=== PATIENT | female | born 1935 | race African-American/Black ===

== ENCOUNTER 2017-07-18 10:34 | Inpatient (IN) ==
[2017-07-18] MEDS ORDERED: SODIUM CHLORIDE 0.9% 500 ML IV STA (11:42)
[2017-07-18] MEDS ORDERED: FUROSEMIDE 40 MG/4 ML VIAL IV STA (11:44)
--- NOTE | 2017-07-18 11:45 | Emergency Department Note ---
Cristain Mirza Brittany, am scribing for, and in the presence of, Laz Claudio MD 11:39. Shanon Mirza Charles R, MD, personally performed the services described in this documentation, ascribed by Ligia Foster in my presence, and it is both accurate and complete . Arrival - Arrival Chief Complaint: Altered Mental Status Stated Complaint: Sugar high & slurred speech, diarrhea. 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 . Mode of Arrival: Wheelchair Limitations: No Limitations Source: Patient, RN Notes Reviewed Time Seen by Provider: 07/18/17 11:20 - History of Present Illness HPI Narrative: Patient is a 81 y/o black female with a history of HTN, Peripheral Neuropathy, and IDDM presenting to the ED for further evaluation of AMS that began yesterday. Family reports that for about a week now patient has been having elevated blood sugars, vertigo, edema of lower extremities, decrease in appetite , and diarrhea. Patient suddenly began to have some confusion, that is not normal for her. Family states that patient usually is on spot and one to recall things very well. In room patient has difficulty concentrating and is pleasantly confused. Family did take patient to her PCP office yesterday which she was diagnosed with strep throat. She was not placed on abx and did not receive a steroid injection. Patient denies having had any headache or blurred vision. Patient does not take any diuretics. Patient has no further complaints. Onset (ago): week(s) (1) Consistency: intermittent Allergies/Adverse Reactions: Allergies Allergy/AdvReac Type Severity Reaction Status Date / Time Penicillins Allergy HIVES Verified 07/18/17 11:04 Sulfa (Sulfonamide Allergy HIVES Verified 07/18/17 11:04 Antibiotics) Home Medications: Home Medications Medication Instructions Recorded Confirmed Type Insulin Aspart Prot/Asp 70/30 25 unit SUBCUT AC SUPPER 05/09/15 07/18/17 History [NovoLOG Mix 70/30] Insulin Aspart Prot/Asp 70/30 35 unit SUBCUT AC BREAKFAST 05/09/15 07/18/17 History [NovoLOG Mix 70/30] Lansoprazole [Prevacid] 15 mg PO DAILY 05/09/15 07/18/17 History Potassium Chloride 20 meq PO DAILY 05/09/15 07/18/17 History Losartan/Hydrochlorothiazide 1 tablet PO DAILY 07/18/17 07/18/17 History [Losartan-Hctz 50-12.5 mg Tab] Metformin HCl [Metformin HCl] 500 mg PO DAILY 07/18/17 07/18/17 History Metoprolol Succinate 50 mg PO DAILY 07/18/17 07/18/17 History Nebivolol [Bystolic] 5 mg PO DAILY 07/18/17 07/18/17 History Review of System - Review of System 12 point system: reviewed and no additional remarkable complaints except as stated - Review of System Constitutional: Present: other (elevated blood glucose). Absent: chills, fever Eyes: Absent: vision change Head/Ears/Nose/Throat: Absent: nasal drainage, sore throat Respiratory: Absent: respiratory distress Cardiovascular: Present: edema. Absent: chest pain Gastrointestinal: Present: diarrhea, other (decrease in appetite). Absent: abdominal pain, nausea, vomiting Genitourinary female: Absent: dysuria, frequency, urgency Musculoskeletal: Absent: arm pain, back pain, leg pain, neck pain Skin: Absent: rash Neurological: Present: confusion, vertigo. Absent: headache Psychiatric: Absent: anxiety, depression Hematological/Lymphatic: Absent: easy bleeding, easy bruising Medical,Surgical,& Family Hx - Medical History Cardio: History of: Hypertension Neurology: History of: Peripheral Neuropathy (Diabetic Neuropathy) Endocrine: History of: Diabetes Mellitus (IDDM) - Surgical History Surgical History: noncontributory - Family History Family History: noncontributory - Social History Smoking Status: Never smoker Frequency of Alcohol Use: None Type of Drug Use: None Exam Vital Signs: Vital Signs Temperature 98.5 F 07/18/17 11:00 Pulse Rate 97 H 07/18/17 14:00 Respiratory Rate 18 07/18/17 14:00 Blood Pressure 126/103 07/18/17 14:00 O2 Sat by Pulse Oximetry 98 07/18/17 14:00 - General General appearance: alert, in no apparent distress - Head Head exam: Present: atraumatic, normocephalic, normal inspection - Eye Eye exam: Present: normal appearance, PERRL, EOMI - ENT ENT exam: Present: normal exam, normal oropharynx - Neck Neck exam: Present: normal inspection, full ROM, trachea midline - Chest Chest inspection: Present: normal inspection, symmetric chest wall rise - Respiratory Respiratory exam: Present: rales (bilaterally). Absent: normal lung sounds bilaterally - Cardiovascular Cardiovascular exam: Present: normal rhythm, tachycardia, normal heart sounds. Absent: regular rate - Abdominal Exam Abdominal exam: Present: soft, hyperactive bowel sounds. Absent: tenderness, normal bowel sounds - Extremities Exam Extremities exam: Present: pedal edema (+2 edema BLE) - Back Exam Back exam: Present: normal inspection - Neurological Exam Neurological exam: Present: alert, CN II-XII intact. Absent: oriented X3 (Pt is pleasantly confused, has a hard time concentrating her thoughts), motor sensory deficit - Psychiatric Psychiatric exam: Present: normal affect, normal mood - Skin Skin exam: Present: warm, dry Course - Consultations Consultation #1: Hospitalist will admit patient Time: 13:45 Results - Labs CBC & BMP: 07/18/17 11:56 07/18/17 11:56 Lab Results: I have reviewed the patients labs Labs: Laboratory Tests 07/18/17 07/18/17 07/18/17 11:42 11:56 11:56 WBC 10.2 RBC 4.41 Hgb 11.5 L Hct 34.6 L MCV 78.5 L MCH 26 L Plt Count 234 Lymph % (Auto) 19.1 L Lawrence % (Auto) 15.2 H [place] # (Auto) 1.6 H INR 1.1 PT Patient/Control Mix 12.0 Ammonia 20 Laboratory Tests 07/18/17 11:56 Urine Color Yellow Urine Appearance Cloudy Urine pH 5.0 Ur Specific [place] 1.008 Urine Protein 100 Urine Glucose (UA) 50 Urine Ketones Negative Urine Blood Small Urine Nitrate Negative Urine Bilirubin Negative Urine Urobilinogen < 2.0 H Urine Leukocytes Negative Urine RBC 3 Urine WBC 2 Ur Squamous Epith Cells Occasional Urine Bacteria Few Hyaline Casts 1 Urine Mucus Occasional Laboratory Tests 07/18/17 11:56 Sodium 138 Potassium 3.6 Chloride 102 Carbon Dioxide 27 BUN 41 H Creatinine 2.40 H Glucose 302 H ALT 75 H Troponin I < 0.015 Albumin 3.0 L Globulin 4.6 H Albumin/Globulin Ratio 0.6 L Laboratory Tests 07/18/17 11:56 B-Natriuretic Peptide 217 H Laboratory Tests 07/18/17 12:32 Triglycerides 123 Cholesterol 79 LDL Cholesterol 49.0 VLDL Cholesterol 24.6 HDL Cholesterol 20 L Heart Disease Risk Ratio 3.95 Laboratory Tests 07/18/17 12:32 Hemoglobin A1c 9.1 H Laboratory Tests 07/18/17 15:35 POC Glucose 292 H - Diagnostic Findings Procedure: Chest x-ray: report reviewed by me (Minimal interstitial edema.), CT : report reviewed by me (CT Head: No abnormality is seen.) Critical Care Time Critical Care Time: Yes Total Critical Care Time: 60 Disposition Clinical Impression: Altered mental status, Hypertensive urgency, Renal insufficiency Case discussed with: patient, patient's family Disposition: Still a Patient Condition: Stable Time of Disposition: 13:46
[2017-07-18] MEDS ORDERED: FUROSEMIDE 40 MG/4 ML VIAL ONE (11:47)
[2017-07-18 12:09] LABS: Basophils % 0.3 % (0.0-0.8); Eosinophils # 0.1 10*3/uL (0.0-0.87); Eosinophils % 1.2 % (0.00-10.9); Hematocrit 34.6 VOL% (35.7-47.0); Hemoglobin 11.5 GM/DL (12.0-16.0); Immature Granulocytes % 0.4 %; Immature Granulocytes Absolute 0.04 #; Lymphocytes % 19.1 % (21.3-54.2); Mean Corpuscular HGB Conc 33.2 GM/DL (32-36); Mean Corpuscular Hemoglobin 26 PG (27-34); Mean Corpuscular Volume 78.5 FL (87-102); Mean Platelet Volume 10.7 FL (9.6-12.0); Monocytes # 1.6 10*3/uL (0.11-0.8); Monocytes % 15.2 % (1.7-12.7); Neutrophils # 6.5 10*3/uL (1.4-7.4); Neutrophils % 63.8 % (38.7-73.9); Platelet Count 234 T/CUMM (130-400); Red Blood Count 4.41 MC/CUMM (3.8-5.5); Red Cell Distribution Width 13.3 % (9.3-17.3); White Blood Count 10.2 T/CUMM (4-12)
[2017-07-18 12:18] LABS: INR 1.1
[2017-07-18 12:22] LABS: Ammonia 20 UMOL/L (11-32)
[2017-07-18 12:26] LABS: Lactic Acid 1.9 MMOL/L (0.4-2.0)
[2017-07-18 12:30] LABS: Alanine Aminotransferase 75 U/L (13-56); Alkaline Phosphatase 106 U/L (45-117); Aspartate Amino Transferase 36 U/L (0-37); Blood Urea Nitrogen 41 MG/DL (7-18); Calcium 9.4 MG/DL (8.5-10.1); Glucose 302 MG/DL (74-106); Osmolality,Calculated 295.7 MOS/KG (273-304); Potassium 3.6 MMOL/L (3.5-5.1); Sodium 138 MMOL/L (136-145); Total Protein 7.6 G/DL (6.4-8.3); Troponin I Only < 0.015 NG/ML (0.00-0.045)
--- NOTE | 2017-07-18 12:30 | Order Completion Report ---
See report scanned to EMR
[2017-07-18 12:34] LABS: Apearance,Urine CLOUDY (Clear); Bacteria,Urine Few /HPF (Few); Bilirubin,Urine Negative (Negative); Blood, Urine Small mg/dL (Negative); Glucose,Urine (UA) 50 mg/dL (Negative); Hyaline Casts,Urine 1 /LPF (0-3); Ketones,Urine Negative (Negative); Mucus,Urine Occasional /LPF (Occasional); Nitrite,Urine Negative (Negative); Protein,Urine 100 MG/DL; RBC,Urine 3 /HPF (0-4); Squamous Epithelial Cell,Urine Occasional /HPF (0-10); Urine Color Yellow (Yellow); Urine Specific Gravity 1.008 (1.001-1.035); Urine Urobilinogen < 2.0 EU/DL (0.2-1.0); WBC,Urine 2 /HPF (0-6)
--- NOTE | 2017-07-18 13:05 | XRay Report ---
History is altered mental status Comparison 12/29/2011 The heart and vessels are mildly enlarged. Superior mediastinal contours unchanged likely related to vasculature There is minimal increasing interstitial prominence without consolidation. Impression: Minimal interstitial edema PROCEDURE INTERPRETED AT [facility] DEPARTMENT OF RADIOLOGY Final Report Signed by: Dr. Christel Healy
[2017-07-18] MEDS ORDERED: LABETALOL 20 MG/4 ML SYRINGE IV ONE (13:15)
[2017-07-18] MEDS ORDERED: LABETALOL 20 MG/4 ML SYRINGE IV STA (13:17)
--- NOTE | 2017-07-18 13:47 | CT Report ---
CT of the head without contrast. Indication: Altered mental status. Comparison: March 31, 2017. The ventricles are normal in size and configuration. There is no mass effect, midline shift, or area of hemorrhage. No ischemic lesions are seen. The calvarium is intact. The included paranasal sinuses and the mastoid air cells are clear. Impression: No abnormality is seen. The CT exam was performed using one or more of the following dose reduction techniques: Automated exposure control, adjustment of the mA and/or kV according to patient size, or use of iterative reconstruction technique. PROCEDURE INTERPRETED AT [facility] DEPARTMENT OF RADIOLOGY Final Report Signed by: Dr. Jane Healy
[2017-07-18] MEDS ORDERED: DEXTROSE 50% 25 GM/50 ML VIAL IV PRN ×2 (14:15)
[2017-07-18] MEDS ORDERED: GLUCAGON 1 MG VIAL IM PRN ×2 (14:15)
[2017-07-18] MEDS ORDERED: hydrALAZINE 25 MG TABLET PO PRN (14:17)
[2017-07-18 14:48] LABS: Risk Ratio 3.95; VLDL CHOLESTEROL 24.6 MG/DL
--- NOTE | 2017-07-18 15:56 | Hospitalist History & Physical ---
Assessment and Plan - Time spent with patient Time spent with patient: Greater than 30 minutes (1) Altered mental status Status: Acute Assessment and plan: Admit to monitored bed Head CT shows no acute intracranial abnormality. MRI of the head/brain MRA neck Consult neurology UDS Current Visit: Yes (2) Atrial fibrillation, new onset Status: Acute Assessment and plan: Echocardiogram Anticoagulate with Lovenox Metoprolol succinate Aspirin 325 Current Visit: Yes (3) Acute kidney injury Status: Acute Assessment and plan: IV fluids Avoid nephrotoxic agents Continue home dose of losartan Current Visit: Yes (4) Diarrhea Status: Acute Assessment and plan: Stool cultures and C. difficile toxins A and B IV fluid for repletion Current Visit: Yes (5) Diabetes mellitus Status: Acute Assessment and plan: Accu-Cheks ACHS. Continue home insulin dose. Add sliding scale insulin per protocol Current Visit: Yes (6) Hypertensive urgency Status: Acute Assessment and plan: Resolved. Continue to monitor BP. Continue home medications for hypertension. Add hydralazine PRN Current Visit: Yes History of Present Illness Chief complaint: hyperglycemia History of present illness: Ms. Daly is a 81 year old female with a past medical history significant for diabetes mellitus and hypertension who presents to the ED today for further evaluation of elevated blood sugar with onset today. The patient presented today for a mammogram which she was found to have elevated blood sugars and was told to report to the emergency room. On admission to the ER, patient was found to be in hypertensive crisis with hypoglycemia and some confusion. Patient's daughters, who are at bedside, assisted in the history and reports that the patient has been intermittently confused with diarrhea for the past several days (3-4 times a day). Patient admits that she did not take her insulin as prescribed last night nor has she taken her antihypertensive medication this morning. She confirms confusion, bilateral lower extremity swelling, and frequent falls. She denies any pain at this time, tenderness or fever and states that her appetite has not decreased any. She does confirm that she is recently changed blood pressure medications within the last month. Lab work is significant for: WBC 10.2, hemoglobin 11.5, hematocrit 34.6, platelets 234, BUN 41, creatinine 2.40, serum glucose 302, ALT 75. Urinalysis is negative for infection. This case has been discussed both with the ER physician and Dr. Robles, admitting physician, and the patient will be admitted to the hospital medicine service for further evaluation and treatment. CODE STATUS was discussed: Patient is a full code. Home medications have been reviewed and reconciled. Home Medications Medication Instructions Recorded Confirmed Type Insulin Aspart Prot/Asp 70/30 25 unit SUBCUT AC SUPPER 05/09/15 07/18/17 History [NovoLOG Mix 70/30] Insulin Aspart Prot/Asp 70/30 35 unit SUBCUT AC BREAKFAST 05/09/15 07/18/17 History [NovoLOG Mix 70/30] Lansoprazole [Prevacid] 15 mg PO DAILY 05/09/15 07/18/17 History Potassium Chloride 20 meq PO DAILY 05/09/15 07/18/17 History Losartan/Hydrochlorothiazide 1 tablet PO DAILY 07/18/17 07/18/17 History [Losartan-Hctz 50-12.5 mg Tab] Metformin HCl [Metformin HCl] 500 mg PO DAILY 07/18/17 07/18/17 History Metoprolol Succinate 50 mg PO DAILY 07/18/17 07/18/17 History Nebivolol [Bystolic] 5 mg PO DAILY 07/18/17 07/18/17 History Allergies Allergy/AdvReac Type Severity Reaction Status Date / Time Penicillins Allergy HIVES Verified 07/18/17 11:04 Sulfa (Sulfonamide Allergy HIVES Verified 07/18/17 11:04 Antibiotics) Medical,Surgical,& Family Hx - Medical History Cardio: History of: Hypertension Neurology: History of: Peripheral Neuropathy (Diabetic Neuropathy) Endocrine: History of: Diabetes Mellitus (IDDM) - Family History Family History: Reports;: Family Diabetes, Family Heart Disease, Family Hypertension - Social History Smoking Status: Never smoker Frequency of Alcohol Use: None Type of Drug Use: None Marital Status: Single Lives With:: Children Functional capacity: independent ambulation 12 point system: reviewed and no additional remarkable complaints except as stated Exam - Constitutional Vitals: Period Temp Pulse Resp BP Sys/Rider Pulse Ox Last 24 Hr 98.5 F-98.5 F 83-111 16-20 126-209/82-129 96-100 Exam: General appearance: obese, no acute distress - Head Head exam: Present: normocephalic, atraumatic - Eye Eye exam: Present: EOMI. Absent: conjunctival injection, nystagmus Pupils: Present: DAVID, normal accommodation - ENT ENT exam: Present: normal exam, normal external ear exam - Neck Neck exam: Present: normal inspection. Absent: lymphadenopathy, tenderness, thyromegaly - Respiratory Respiratory exam: Present: clear to auscultation bilaterally. Absent: rales, rhonchi, wheezes - Cardiovascular Cardiovascular exam: Present: Irregularly irregular. Absent: carotid bruit, gallop, rubs - GI/Abdominal GI/Abdominal exam: Present: normal bowel sounds. Absent: ascites, distended, mass - Extremities Exam Extremities exam: Present: BLE 2-3+ pitting edema - Back Exam Back exam: Absent: CVA tenderness (L), CVA tenderness (R) - Neurological Exam Neurological exam: Present: alert, oriented X3, CN II-XII intact, reflexes normal - Psychiatric Psychiatric exam: Present: normal affect, normal mood - Skin Skin exam: Present: normal color, warm, dry Results - Labs CBC & BMP: 07/18/17 11:56 07/18/17 11:56 Lab Results: I have reviewed the past 24 hour labs - EKG EKG shows: atrial fibrillation - Diagnostic Findings Procedure: Chest x-ray: image reviewed by me, report reviewed by me, CT: image reviewed by me, report reviewed by me Quality Measures - VTE Contraindication to Pharmacological VTE Prophylaxis: Already on Theraputic Agent , No Prophylaxis Needed
[2017-07-18 16:54] LABS: Barbiturates Screen,Urine Negative (Negative); Benzodiazepines Screen,Urine Negative (Negative); Cannabinoid Screen,Urine Negative (Negative); Opiate Screen,Urine Negative (Negative); Phencyclidine Screen,Urine Negative (Negative)
[2017-07-18] MEDS: INSULIN ASPART PROTAMINE/ASPART 70/30 100 UNIT/ML SUBCUT SCH (17:47)
[2017-07-18] MEDS: ASPIRIN 325 MG TABLET PO SCH (17:47)
[2017-07-18] MEDS: SODIUM CHLORIDE 0.45% 1,000 ML IV SCH (17:48)
[2017-07-18] MEDS: ENOXAPARIN 80 MG/0.8 ML SYRINGE SUBCUT SCH (17:48)
[2017-07-18] MEDS: INSULIN LISPRO 100 UNIT/ML SUBCUT SCH ×2 (18:00→21:08)
--- NOTE | 2017-07-18 19:06 | Order Completion Report ---
See report scanned to EMR
[2017-07-18] MEDS: ROSUVASTATIN 20 MG TABLET PO SCH (21:08)
[2017-07-19] MEDS: SODIUM CHLORIDE 0.45% 1,000 ML IV SCH ×3 (06:36→16:47)
[2017-07-19 08:06] LABS: Basophils % 0.2 % (0.0-0.8); Eosinophils # 0.2 10*3/uL (0.0-0.87); Eosinophils % 2.2 % (0.00-10.9); Hematocrit 31.2 VOL% (35.7-47.0); Hemoglobin 10.5 GM/DL (12.0-16.0); Immature Granulocytes % 0.4 %; Immature Granulocytes Absolute 0.04 #; Lymphocytes # 2.7 10*3/uL (1.4-4.0); Lymphocytes % 24.9 % (21.3-54.2); Mean Corpuscular HGB Conc 33.7 GM/DL (32-36); Mean Corpuscular Hemoglobin 26 PG (27-34); Mean Corpuscular Volume 77.4 FL (87-102); Mean Platelet Volume 10.8 FL (9.6-12.0); Monocytes # 1.6 10*3/uL (0.11-0.8); Monocytes % 15.1 % (1.7-12.7); NRBC # 0.02 10*3/uL; Neutrophils # 6.1 10*3/uL (1.4-7.4); Neutrophils % 57.2 % (38.7-73.9); Platelet Count 247 T/CUMM (130-400); Red Blood Count 4.03 MC/CUMM (3.8-5.5); Red Cell Distribution Width 13.6 % (9.3-17.3); White Blood Count 10.7 T/CUMM (4-12)
[2017-07-19] MEDS: INSULIN LISPRO 100 UNIT/ML SUBCUT SCH ×4 (08:08→21:57)
--- NOTE | 2017-07-19 08:14 | Physician Query Form ---
CLICK EDIT DOCUMENT TO SELECT QUERY ANSWER --> OK --> SIGN Blank Galeano RN, CCDS Certified Clinical Mri Supervisor W) [phone] (f) [phone] [email or web address] PROVIDERS: Make your selection(s) from the choices in EACH section by typing an "x" and enter comments in the comment section. Please use your independent medical judgment in providing your response. This request does not imply that any particular answer is desired or expected. CLINICAL INDICATORS: (Providers should not edit this section) The medical record indicates that the patient was admitted with Hypertension, "hypertensive urgency", AMS, "suddenly began to have some confusion", "not normal for her", "pleasantly confused" and "Head CT shows no acute intracranial abnormality." Apresoline was given: ACUITY: (x ) Acute ( ) Acute on Chronic ( ) Chronic ( ) Clinically unable to determine NATURE: (x) Delirium due to general medical condition ( ) Dementia ( ) Encephalopathy ( ) Hypertensive Encephalopathy ( ) Encephalopathy due to: ( ) Unconscious ( ) Transient level of awareness ( ) Comatose ( ) Locked-in State ( ) Persistent Vegetative State ( ) Other, please specify: ( ) Clinically unable to determine Please indicate the underlying cause of the altered mental status (CHECK ALL THAT APPLY): ( ) Baseline dementia ( ) Alzheimer's disease ( ) Parkinson's disease ( ) Lewy body dementia ( ) Acute stroke ( ) Late effect of stroke ( ) Reactive (from emotional stress, psychological trauma) ( ) Due to narcotics/other drugs ( ) Post procedural delirium ( ) Transient ischemic attack ( ) Generalized cerebral edema ( ) Normal pressure hydrocephalus ( ) Psychiatric illness ( ) Other, please specify: ( ) Clinically unable to determine Please indicate if there is an infection, sepsis, dehydration or specific organ failure that is causing the dementia. Be specific with clarifying the relationship between that process and the mental status change. COMMENTS: PLEASE ALSO DOCUMENT RESPONSE IN PROGRESS NOTES AND/OR DISCHARGE SUMMARY Use of terms such as suspected, likely, or probable (associated with a specific diagnosis that is being evaluated, monitored, or treated as if it exists) are acceptable and can be restated in the discharge summary if not ruled out. MTDD
[2017-07-19 08:31] LABS: Calcium 9.1 MG/DL (8.5-10.1); Osmolality,Calculated 290.4 MOS/KG (273-304); Potassium 3.6 MMOL/L (3.5-5.1)
[2017-07-19] MEDS: ASPIRIN 325 MG TABLET PO SCH (08:33)
[2017-07-19] MEDS: INSULIN ASPART PROTAMINE/ASPART 70/30 100 UNIT/ML SUBCUT SCH ×2 (08:33→16:11)
[2017-07-19] MEDS ORDERED: METOPROLOL SUCCINATE XL 50 MG TABLET PO SCH (09:00)
[2017-07-19] MEDS ORDERED: LOSARTAN/HCTZ 50-12.5 MG TABLET PO SCH (09:00)
[2017-07-19] MEDS: DILTIAZEM 60 MG TABLET PO SCH ×3 (10:52→21:56)
--- NOTE | 2017-07-19 13:04 | Magnetic Resonance Report ---
History is CVA, hypertension 3-D [id number] images of the carotid bifurcations performed. The left vertebral artery is dominant. There is minimal plaque in the proximal ICA on the right with a maximum 20% diameter stenosis There is mild plaque and tortuosity of the proximal ICA on the left with a maximum 10% diameter stenosis. Impression: 1. Moderate amounts of plaque with maximum 10% diameter stenosis of both proximal ICAs PROCEDURE INTERPRETED AT [facility] DEPARTMENT OF RADIOLOGY Final Report Signed by: Dr. Christel Healy
--- NOTE | 2017-07-19 13:22 | Magnetic Resonance Report ---
History his confusion, CVA The ventricles are normal in size accounting for mild diffuse atrophy There are mild periventricular patchy white matter T2 signal abnormalities present without acute ischemia seen on diffusion-weighted images No acute intracranial hemorrhage or mass effects seen No focal signal abnormality or volume loss seen in the medial temporal lobes. Impression: 1. Mild diffuse atrophy 2. Minimal patchy nonspecific white matter T2 signal abnormalities most frequently associated with sequelae of chronic microvascular disease PROCEDURE INTERPRETED AT [facility] DEPARTMENT OF RADIOLOGY Final Report Signed by: Dr. Christel Healy
[2017-07-19] MEDS: ENOXAPARIN 80 MG/0.8 ML SYRINGE SUBCUT SCH (16:12)
--- NOTE | 2017-07-19 16:23 | Hospitalist Progress Note ---
Assessment and Plan (1) Altered mental status Status: Acute Assessment and plan: 1)mental status back to baseline. 2)diarrhea- resolved, no stool studies obtained. 3)rapid afib- start oral dilt this morning tid to address HTN and heart rate. 4)HTN- see above. use hydralazine prn. 5)JOHNNY- creatinine in March was 1.1. Now 2.4- unchanged from yesterday despite hydration. stop losartan. recheck in am. Current Visit: Yes (2) Acute kidney injury Status: Acute Current Visit: Yes (3) Diarrhea Status: Acute Current Visit: Yes (4) Atrial fibrillation, new onset Status: Acute Current Visit: Yes (5) Diabetes mellitus Status: Acute Current Visit: Yes Hospitalist: Subjective Interval history: Mrs Daly is back other usual self this afternoon. Her MRI did not show stroke. Her MRA neck also looked ok. She is turnign 82 on Sunday. Her afib remains rapid occasionally, and I have started Dilt. Exam - Constitutional Vitals: Period Temp Pulse Resp BP Sys/Rider Pulse Ox Last 24 Hr 97.7 F-98.6 F 98-112 12-20 127-167/74-111 96-99 General appearance: no acute distress, morbidly obese - Eye Eye exam: Present: EOMI. Absent: scleral icterus - Respiratory Respiratory exam: Present: clear to auscultation bilaterally - Cardiovascular Cardiovascular exam: Present: irregular rhythm, tachycardia - GI/Abdominal GI/Abdominal exam: Present: normal bowel sounds, soft. Absent: tenderness - Extremities Exam Extremities exam: Absent: edema Results - Labs CBC & BMP: 07/19/17 07:45 07/19/17 07:45 Lab Results: I have reviewed the past 24 hour labs Quality Measures - VTE Contraindication to Pharmacological VTE Prophylaxis: Already on Theraputic Agent , No Prophylaxis Needed
[2017-07-19] MEDS: ROSUVASTATIN 20 MG TABLET PO SCH (21:56)
[2017-07-20 07:40] VITALS: BP 151/75
[2017-07-20] MEDS: INSULIN LISPRO 100 UNIT/ML SUBCUT SCH (08:57)
[2017-07-20] MEDS ORDERED: ASPIRIN CHEW 81 MG TABLET PO SCH (08:57)
[2017-07-20] MEDS ORDERED: INSULIN ASPART PROTAMINE/ASPART 70/30 100 UNIT/ML SUBCUT SCH ×2 (08:58)
--- NOTE | 2017-07-20 08:58 | Discharge Summary ---
Hospital Course - Hospital Course Hospital Course: Ms. Daly is a 81-year-old -[place] female who was admitted on 2016 through the [facility] with altered mental status, new onset atrial fibrillation, diarrhea and hypertension. At the time of admission, her confusion had cleared up per her daughter however she was not yet at her baseline. It was believed that she might of suffered a stroke due to the new onset atrial fibrillation and hypertension. His CT at the time of admission showed no evidence of acute intracranial abnormality. She was admitted to the telemetry unit with Lovenox every 12 hours and aspirin and started on IV fluids. Her hypertension diabetes was treated. I have also seen and examined Mrs Daly and agree with the note above. I discussed her risk of stroke with and without anticoagulation and the risk/ benefit of anticoagulation with her and her daughters and at this point they want to proceed with anticoagulation so I will prescribe Eliquis. She will follow up with cardiology in clinic, as well as with Dr Wang. She will also see Dr Carrera as a new patient for CKD. Her losartan was stopped. Her rate is controlled on metoprolol and diltiazem. I also stopped her metformin which is the medicine most likely to be causeing her diarrhea. While here on her usual insulin her blood sugars are well controlled and even a little low. I have decreased her evening insulin. Her confusion cleared up. Her MRI did not show acute abnormality. In addition she has some depression and anxiety manifested by worrying too much to sleep. She wants to try something to help those symptoms so I have added amitriptyline at 25mg at bedtime. She is feeling good and wants to get home for her birthday tomorrow, so she does not want to wait to see Dr Rodriguez. She will be discharged to home. - Time spent with patient Time with patient DS: Greater than 30 minutes (discussion with family and patient, medicine reconciliation, documentation required 45 minutes.) Diagnosis - Discharge Diagnosis (1) Altered mental status Status: Resolved (2) Acute kidney injury Status: Ruled-out (3) Diarrhea Status: Resolved (4) Atrial fibrillation, new onset Status: Chronic (5) Diabetes mellitus Status: Chronic (6) CKD (chronic kidney disease) stage 4, GFR 15-29 ml/min Status: Acute Specialty Discharge - Follow Up or Referrals Follow up with: Cardiology - [facility] [Provider Group] - 08/02/17 1:00 pm (new afib ) John Carrera MD [Physician] - 08/21/17 3:00 pm (CKD Brenda will call pt with an earlier date, shes working on it. schedule it busy at the moment.) Gopi Wang [Physician] - Discharge Plan - Discharge Data Disposition: Home Health Service Condition at Discharge: Stable Discharge Diet: diabetic diet, heart healthy Activity: resume usual activities as tolerated - Discharge Medications New Amitriptyline [Elavil] 25 mg PO BEDTIME #30 tablet Apixaban [Eliquis] 2.5 mg PO BID #60 tablet Diltiazem Cd Cap [Cardizem CD] 180 mg PO DAILY capsule Insulin Aspart Prot/Asp 70/30 [NovoLOG Mix 70/30] 20 unit SUBCUT AC SUPPER unit Continue Insulin Aspart Prot/Asp 70/30 [NovoLOG Mix 70/30] 35 unit SUBCUT AC BREAKFAST Lansoprazole [Prevacid] 15 mg PO DAILY Metoprolol Succinate 50 mg PO DAILY Discontinued Insulin Aspart Prot/Asp 70/30 [NovoLOG Mix 70/30] 25 unit SUBCUT AC SUPPER Potassium Chloride 20 meq PO DAILY Losartan/Hydrochlorothiazide [Losartan-Hctz 50-12.5 mg Tab] 1 tablet PO DAILY Azithromycin Tab [Zithromax Tab] 250 mg PO DAILY Metformin HCl [Metformin HCl] 500 mg PO DAILY - Follow Up or Referral Follow Up: Cardiology - [facility] [Provider Group] - 08/02/17 1:00 pm (new afib ) John Carrera MD [Physician] - 08/21/17 3:00 pm (CK[facility] Brenda will call pt with an earlier date, shes working on it. schedule it busy at the moment.) Gopi Wang [Physician] - - Forms/Instructions Instructions: Atrial Fibrillation (DC), Altered Mental Status (GEN) Exam - Constitutional Vitals: Period Temp Pulse Resp BP Sys/Rider Pulse Ox Last 24 Hr 97.3 F-99.4 F 72-99 12-20 122-158/53-90 90-99 Discharge Results Procedures and tests throughout hospitalization: Pending Orders 07/18/17 12:31 Blood Culture Stat 07/18/17 14:18 C. Diff Toxins A & B Routine Stool Culture Routine Labs on day of discharge: Labs from last 24 hours 07/20/17 07/19/17 07/19/17 07:24 21:30 15:42 POC Glucose 83 70 L 233 H 07/19/17 11:11 POC Glucose 84 Preliminary micro results at discharge 07/18/17 12:31 Blood Culture - Preliminary Blood No growth at 1 day 07/18/17 12:31 Blood Culture - Preliminary Blood No growth at 1 day DS: Provider Date of admission: 07/18/17 14:25 Primary care physician: . No PCP Attending physician on admission: Ela Robles MD Consults: 07/18/17 14:09 Consult to Case Mgmt/Social Srvs [CONS] Routine Reason for Case Mgmt/Social Srvs: Discharge Planning Consult to Occupational Therapy [CONS] Routine Reason for Occupational Therapy: Evaluate and Treat Consult Comment: Stroke Consult to Physical Therapy [CONS] Routine Reason for Physical Therapy: Evaluate and Treat Consult Comment: stroke 07/18/17 14:13 Consult to Diabetes [facility], Educator [CONS] Routine Reason for Weather Strip Installer: Diabetes Education Consult to Physician [CONS] Routine Comment: confusion, weakness, falls Consulting Provider: Italo Rodriguez Consult to Specialist Group: Neurology Person Notified: Yaquelin Date Notified: 07/19/17 Time Notified: 09:15 07/18/17 17:00 Consult to Pastoral Services [CONS] Routine Comment: Pastoral Screen: Request Van Loader Visit Pastoral Screen Source of Request: Patient Discharging clinician: Ela Robles MD
[2017-07-20] MEDS ORDERED: METOPROLOL SUCCINATE XL 50 MG TABLET PO SCH (09:00)
--- NOTE | 2017-07-20 09:16 | Discharge Summary ---
Hospital Course - Hospital Course Hospital Course: Ms. Daly is a 81-year-old -[place]kin[place] female who was admitted on 2016 through the [facility] with altered mental status, new onset atrial fibrillation, diarrhea and hypertension. At the time of admission, her confusion had cleared up per her daughter however she was not yet at her baseline. It was believed that she might of suffered a stroke due to the new onset atrial fibrillation and hypertension. His CT at the time of admission showed no evidence of acute intracranial abnormality. She was admitted to the telemetry unit with Lovenox every 12 hours and aspirin and started on IV fluids. Her hypertension diabetes was treated. - Time spent with patient Time with patient DS: Greater than 30 minutes Diagnosis - Discharge Diagnosis (1) Altered mental status Status: Acute (2) Atrial fibrillation, new onset Status: Acute (3) Acute kidney injury Status: Acute (4) Diarrhea Status: Acute (5) Diabetes mellitus Status: Acute (6) Hypertensive urgency Status: Acute Discharge Plan - Discharge Medications No Action Insulin Aspart Prot/Asp 70/30 [NovoLOG Mix 70/30] 25 unit SUBCUT AC SUPPER Insulin Aspart Prot/Asp 70/30 [NovoLOG Mix 70/30] 35 unit SUBCUT AC BREAKFAST Potassium Chloride 20 meq PO DAILY Lansoprazole [Prevacid] 15 mg PO DAILY Metoprolol Succinate 50 mg PO DAILY Losartan/Hydrochlorothiazide [Losartan-Hctz 50-12.5 mg Tab] 1 tablet PO DAILY Azithromycin Tab [Zithromax Tab] 250 mg PO DAILY Metformin HCl [Metformin HCl] 500 mg PO DAILY - Follow Up or Referral - Forms/Instructions Exam - Constitutional Vitals: Period Temp Pulse Resp BP Sys/Rider Pulse Ox Last 24 Hr 97.3 F-99.4 F 72-99 12-20 122-158/53-90 90-99 Discharge Results Procedures and tests throughout hospitalization: Pending Orders 07/18/17 12:31 Blood Culture Stat 07/18/17 14:18 C. Diff Toxins A & B Routine Stool Culture Routine Labs on day of discharge: Labs from last 24 hours 07/20/17 07/19/17 07/19/17 07:24 21:30 15:42 POC Glucose 83 70 L 233 H 07/19/17 11:11 POC Glucose 84 Preliminary micro results at discharge 07/18/17 12:31 Blood Culture - Preliminary Blood No growth at 1 day 07/18/17 12:31 Blood Culture - Preliminary Blood No growth at 1 day DS: Provider Date of admission: 07/18/17 14:25 Primary care physician: . No PCP Attending physician on admission: Ela Robles MD Consults: 07/18/17 14:09 Consult to Case Mgmt/Social Srvs [CONS] Routine Reason for Case Mgmt/Social Srvs: Discharge Planning Consult to Occupational Therapy [CONS] Routine Reason for Occupational Therapy: Evaluate and Treat Consult Comment: Stroke Consult to Physical Therapy [CONS] Routine Reason for Physical Therapy: Evaluate and Treat Consult Comment: stroke 07/18/17 14:13 Consult to Diabetes Center, Educator [CONS] Routine Reason for Process Environmental Technician: Diabetes Education Consult to Physician [CONS] Routine Comment: confusion, weakness, falls Consulting Provider: Italo Rodriguez Consult to Specialist Group: Neurology Person Notified: Yaquelin Date Notified: 07/19/17 Time Notified: 09:15 07/18/17 17:00 Consult to Pastoral Services [CONS] Routine Comment: Pastoral Screen: Request Small Piece Cutter Visit Pastoral Screen Source of Request: Patient Discharging clinician: Arun KATE Expected date of discharge: 07/20/17
[2017-07-20] MEDS ORDERED: DILTIAZEM CD 180 MG CAPSULE PO SCH (09:30)
[2017-07-20 10:04] LABS: Calcium 8.7 MG/DL (8.5-10.1); Osmolality,Calculated 293.4 MOS/KG (273-304); Potassium 3.7 MMOL/L (3.5-5.1)
[2017-07-20] MEDS: DILTIAZEM 60 MG TABLET PO SCH (10:28)
[2017-07-20] MEDS: INSULIN ASPART PROTAMINE/ASPART 70/30 100 UNIT/ML SUBCUT SCH (10:28)
[2017-07-20] MEDS ORDERED: AMITRIPTYLINE 25 MG TABLET PO SCH (21:00)
[2017-07-21] MEDS ORDERED: METOPROLOL SUCCINATE XL 50 MG TABLET PO SCH (09:00)
== END 2017-07-20 11:22 | disposition home health service (06) | DRG 305 ==
LOC: N.ED 10:34 → N.EDINP 14:25 → N.TELEN 16:02
PROVIDERS: ADMIT Internal Medicine; ATTEND Internal Medicine